=== PATIENT | female | born 1970 | race Caucasian/White ===

== ENCOUNTER 2017-03-06 23:24 | Emergency (ER) | payer SELFPAY ==
[~2017-03-06] VITALS: Ht 162.6 cm; Wt 72.0 kg
[2017-03-06] MEDS ORDERED: IPRATROPIUM BROMIDE (0.02%) 0.5MG/2.5ML NEB HHN STA (23:46)
[2017-03-06] MEDS ORDERED: PREDNISONE 20MG TABLET PO STA (23:46)
[2017-03-06] MEDS ORDERED: ALBUTEROL (0.083%) 2.5MG/3ML NEB HHN STA (23:46)
[2017-03-07 00:21] LABS: HCG SCREEN NEGATIVE
[2017-03-07 05:01] VITALS: BP 122/74
== END 2017-03-07 05:04 | disposition home or self-care (01) ==
LOC: ER 23:24
DX: J45.901 Unspecified asthma with (acute) exacerbation (principal); I10 Essential (primary) hypertension
CPT/HCPCS: 71010; 84703; 93005; 94640; 99285; J7512; J7611